=== PATIENT | female | born 1950 | race Caucasian/White ===

== ENCOUNTER 2021-01-25 13:25 | Emergency (ER) | payer MEDICAID, OTHER ==
[~2021-01-25] VITALS: Ht 144.8 cm; Wt 71.0 kg
[2021-01-25] MEDS ORDERED: IBUPROFEN 600MG TABLET PO ONE (18:00)
[2021-01-25] MEDS ORDERED: IBUP-2029 MT (19:06)
[2021-01-25 20:26] VITALS: BP 122/63
== END 2021-01-25 21:13 | disposition home or self-care (01) ==
LOC: ER 13:25
DX: M79.605 Pain in left leg (principal); E11.9 Type 2 diabetes mellitus without complications; I10 Essential (primary) hypertension; Z98.51 Tubal ligation status
CPT/HCPCS: 93971; 99284

== ENCOUNTER 2024-12-15 15:32 | Emergency (ER) | payer MEDICARE, MEDICAID ==
[~2024-12-15] VITALS: Ht 160 cm; Wt 68.0 kg
[~2024-12-15 15:32] MED LIST: IBUP-2029 MT
[2024-12-15 15:34] VITALS: O2SAT 99
[2024-12-15] MEDS ORDERED: ACETAMINOPHEN 325MG TABLET PO ONE (19:15)
[2024-12-15] MEDS ORDERED: ACET-2708 MT (19:19)
[2024-12-15] MEDS ORDERED: TRAM50TA3 MT (19:19)
[2024-12-15] MEDS: TRAMADOL 50MG TABLET PO ONE (19:47)
[2024-12-15] MEDS: ACETAMINOPHEN 500MG TABLET PO NR (19:47)
[2024-12-15 20:15] VITALS: BP 171/82; PULSE 58; RESP 16; TEMP 36.9; O2SAT 99
[2024-12-15] MEDS ORDERED: IOHEXOL-300 100 ML BOTTLE ONE (23:44)
== END 2024-12-15 20:26 | disposition home or self-care (01) ==
LOC: ER 15:32
DX: M54.89 Other dorsalgia (principal); E11.9 Type 2 diabetes mellitus without complications; I10 Essential (primary) hypertension; I25.10 Atherosclerotic heart disease of native coronary artery without angina pectoris
CPT/HCPCS: 99284; 70450; 72125; 71250; 74176; Q9967